=== PATIENT | female | born 1955 | race Caucasian/White ===

== ENCOUNTER 2017-04-26 09:28 | Outpatient (CLI) | payer OTHER ==
[2017-04-26 10:11] LABS: eGFR (African) > 60; eGFR (Non-African) > 60
== END 2017-04-26 09:35 ==
LOC: LAB 09:28
PROVIDERS: ATTEND Physician Assistant
DX: I10 Essential (primary) hypertension (principal); Z13.6 Encounter for screening for cardiovascular disorders
CPT/HCPCS: 36415; 80053; 80061

== ENCOUNTER 2017-05-10 10:01 | Outpatient (CLI) | payer OTHER | END 2017-05-10 10:02 | LOC: LABRHC 10:01 | PROVIDERS: ATTEND Family Medicine | DX: N30.01 Acute cystitis with hematuria (principal) | CPT/HCPCS: 87086 ==

== ENCOUNTER 2017-05-17 08:55 | Outpatient (CLI) | payer OTHER ==
[2017-05-17 09:56] LABS: eGFR (African) > 60; eGFR (Non-African) > 60
== END 2017-05-17 10:00 ==
LOC: LAB 08:55
PROVIDERS: ATTEND Physician Assistant
DX: I10 Essential (primary) hypertension (principal); Z13.6 Encounter for screening for cardiovascular disorders; N30.01 Acute cystitis with hematuria
CPT/HCPCS: 36415; 80053; 80061

== ENCOUNTER 2017-05-27 08:15 | Day surgery (SDC) | payer OTHER ==
[~2017-05-27 08:15] MED LIST: LACTATED RINGERS 1,000 ML IV.SOLN IV ONE; PROPOFOL 200 MG/20 ML VIAL IV ONE; SALINE FLUSH 10 ML DISP.SYRIN IVF ONE
--- NOTE | 2017-05-30 12:21 | Operative Note ---
SURGEON: Aaron Reardon MD ANESTHESIA: MAC anesthesia. ESTIMATED BLOOD LOSS: None. COMPLICATIONS: None. FINDINGS: Normal colonoscopy. PREOPERATIVE DIAGNOSIS: Screening colonoscopy. POSTOPERATIVE DIAGNOSIS: Normal colonoscopy. PROCEDURE PERFORMED: Colonoscopy to cecum. INDICATIONS FOR PROCEDURE: This is a 61-year-old woman who presents for a screening colonoscopy. DESCRIPTION OF PROCEDURE: Patient was brought to the endoscopy suite and placed in the left lateral decubitus position. MAC anesthesia was administered by the global mobility specialist. A rectal examination was performed which was normal. The colonoscope was inserted and passed easily to the cecum. The appendiceal orifice and ileocecal valve were identified. The prep was very good. The colonoscope was slowly retracted being careful to inspect all longoria. No polyps or other lesions were noted. The colonoscope was removed. There was a greater than 6 minute withdrawal time. The patient tolerated the procedure well. DISPOSITION: I recommend a repeat colonoscopy in 7 to 10 years. cc: TAMMY Garcia MTDD
== END 2017-05-27 08:16 ==
LOC: OPSURG 08:15
PROVIDERS: ATTEND Colon & Rectal Surgery
DX: Z12.11 Encounter for screening for malignant neoplasm of colon (principal)
CPT/HCPCS: 45378; J2704; J7120; S1016

== ENCOUNTER 2017-08-25 09:32 | Outpatient (CLI) | payer OTHER ==
[2017-08-25 10:10] LABS: eGFR (African) > 60; eGFR (Non-African) > 60
== END 2017-08-25 09:33 ==
LOC: LAB 09:32
PROVIDERS: ATTEND Physician Assistant
DX: E11.9 Type 2 diabetes mellitus without complications (principal); I10 Essential (primary) hypertension; E78.00 Pure hypercholesterolemia, unspecified
CPT/HCPCS: 36415; 80053; 80061; 83036

== ENCOUNTER 2017-12-02 13:34 | Outpatient (CLI) | payer OTHER | END 2017-12-02 13:36 | LOC: LAB 13:34 | PROVIDERS: ATTEND Physician Assistant | DX: E11.9 Type 2 diabetes mellitus without complications (principal) | CPT/HCPCS: 36415; 83036 ==

== ENCOUNTER 2018-06-08 08:53 | Outpatient (CLI) | payer OTHER ==
[2018-06-08 09:38] LABS: eGFR (Non-African) > 60
== END 2018-06-08 08:55 ==
LOC: LAB 08:53
PROVIDERS: ATTEND Physician Assistant
DX: E11.9 Type 2 diabetes mellitus without complications (principal)
CPT/HCPCS: 36415; 80053; 83036